=== PATIENT | female | born 1950 | race Caucasian/White ===

== ENCOUNTER → 2016-12-29 | Outpatient (CLI) | payer OTHER, MEDICARE ==
[~2016-12-29] VITALS: Ht 154.9 cm; Wt 50.8 kg
[~2016-12-29] MED LIST: AMANTADINE 100100 MG PO; ASPIR 8181 MG PO; AZILECT1 MG PO; CICLOPIROX30 GM TOP; FIBER500 MG PO; MACRODANTIN100 MG PO; MIRAPEX1 MG PO; MULTIVITAMINS1 EAC7 PO; PRAVACHOL40 MG PO; SINEMET 25-1001 EAC1 PO
--- NOTE | ~2016-12-29 | P ---
[facility] [place] [address] PROCEDURE REPORT Name: TOMMY LUX Room #: REG [facility]#: [id number] Admission: 12/29/16 Attend Phys: Gage Mortensen MD Discharge: Date of : 46 Report #: [id number] THIS REPORT FOR: //name// CC: Nora Mortensen DATE OF SERVICE: 12/29/2016 BRIEF HISTORY: The patient is a 66-year-old woman for average risk screening colonoscopy. PREOPERATIVE DIAGNOSIS: Average risk screening colonoscopy. POSTOPERATIVE DIAGNOSIS: Normal average risk screening colonoscopy. MEDICATIONS: Deep sedation with propofol per anesthesia. SPECIMEN: None. ESTIMATED BLOOD LOSS: None. PROCEDURE: Colonoscopy to cecum and terminal ileum. FINDINGS: Prior to propofol sedation, procedure of colonoscopy discussed with the patient as well as potential risks and its complications. She indicates she understands and desires to proceed. DESCRIPTION OF PROCEDURE: With the patient in left lateral decubitus position, digital examination was completed which revealed no abnormalities. Subsequently, the [employer]ft video colonoscope was introduced into the rectum, advanced under direct vision to the cecum. Done with minimal difficulty. The cecum was identified by the ileocecal valve and the appendiceal orifice. I was able to visualize the distal segment of terminal ileum, which was inspected and noted to be unremarkable. At that point, the scope was slowly withdrawn and careful circumferential views obtained including retroflexing the scope in the ascending colon. Upon slow withdrawal of the scope, the prep was noted to be excellent. The mucosa was within normal limits, normal vascular pattern, normal light reflex. As we withdrew the scope, she was noted to have normal colonic mucosa throughout. No neoplastic inflammatory changes were seen. No mucosal abnormalities were seen during this examination. The scope was withdrawn in the rectum. Upon retroflexion, no abnormalities were seen. Scope was withdrawn. The patient tolerated the procedure well. CONDITION OF THE PATIENT UPON DISCHARGE: Following procedure, the patient drowsy, aroused, conversant and will be discharged home when fully ambulatory. [address] [address] PROCEDURE REPORT Name: JOSE JTOMMY [id number] Admission: 12/29/16 Attend Phys: Gage Mortensen MD Discharge: Date of : 46 Report #: [id number] INSTRUCTIONS TO THE PATIENT AND FAMILY AT THE TIME OF DISCHARGE: No abnormalities were seen on this exam. No polyps were seen. Suggest followup colon exam in 10 years for average risk patient. She will return to care of Dr. Nora Bo and return to see me. The last colonoscopy was 10 years ago. Withdrawal time from the cecum was 18 minutes 12 seconds. <ELECTRONICALLY SIGNED> By: Gage Mortensen MD 12/30/16 1108 [id number] Gage Mortensen MD /nt
== END | disposition home or self-care (01) ==
LOC: GI 08:58
DX: Z12.11 Encounter for screening for malignant neoplasm of colon (principal); G20 Parkinson's disease; E78.5 Hyperlipidemia, unspecified; Z98.890 Other specified postprocedural states; Z79.82 Long term (current) use of aspirin; Z79.899 Other long term (current) drug therapy
CPT/HCPCS: 62110; 62900